=== PATIENT | male | born 1985 | race Caucasian/White ===

== ENCOUNTER 2020-02-13 21:30 | Emergency (ER) | payer MEDICARE ==
[~2020-02-13] VITALS: Ht 180.3 cm; Wt 111.0 kg
[2020-02-13] MEDS ORDERED: ALBU8.5H8 IH (21:58)
[2020-02-13] MEDS ORDERED: AZIT-21 PO (21:58)
[2020-02-13 22:18] VITALS: BP 135/74
== END 2020-02-13 22:32 | disposition home or self-care (01) ==
LOC: ER 21:31
DX: J20.9 Acute bronchitis, unspecified (principal); Z20.828 Contact with and (suspected) exposure to other viral communicable diseases; Z88.8 Allergy status to other drugs, medicaments and biological substances; Z79.2 Long term (current) use of antibiotics
CPT/HCPCS: 36415; 87635; 99283